=== PATIENT | female | born 1990 | race Caucasian/White ===

== ENCOUNTER 2016-02-14 00:28 | Emergency (ER) | payer SELFPAY ==
--- NOTE | 2016-02-14 02:54 | ED ORDER SUMMARY ---
..... Patient: GEOVANI SIMON OrderSheet [facility] VisitID: [id number] [address] [place] [address] 25y, F Registration Date/Time: 02/14/2016 ORDER SHEET Weight: 58.9 kg Allergies: No Known Drug Allergy GENERAL ORDERS: UA-Culture if indicated Urgent (00:41 02/14/2016 Kaylene CALVERT) (Ack 0:46 OSnell) Urine Urgent (00:41 02/14/2016 Kaylene CALVERT) (Ack 0:46 OSnell) CBC w Diff Urgent (00:43 02/14/2016 Kaylene CALVERT) (Ack 0:46 OSnell) (2:15 EInderbitzen R.N.) CMP Urgent (00:43 02/14/2016 Kaylene CALVERT) (Ack 0:46 OSnell) (2:15 EInderbitzen R.N.) Lactate, Serum Urgent (00:43 02/14/2016 Kaylene CALVERT) (Ack 0:46 OSnell) (2:15 EInderbitzen R.N.) Chest 2V Urgent (00:57 02/14/2016 Kaylene CALVERT) (Ack 0:59 OSnell) (1:49 RFay) Rapid Influenza Screen (Nasal Pharyngeal) (swab) Urgent (01:55 02/14/2016 Kaylene CALVERT) (2:15 EInderbitzen R.N.) MEDICATION ORDERS: Acetaminophen PO 1,000 mg (NOW) (00:41 02/14/2016 Kaylene CALVERT) (1:02 EInderbitzen R.N.) Levofloxacin PO 750 mg (NOW) (02:52 02/14/2016 Kaylene CALVERT) (2:59 EInderbitzen R.N.) IV FLUIDS: IV NS : initial bolus 1000 mL (1000 mL/hr), then none - (NOW) (00:41 02/14/2016 Kaylene CALVERT) (1:02 EInderbitzen R.N.) ORDER SHEET NOTES: [Electronically signed by Nancy Chun R.N. (03:05 02/14/2016)] [Electronically signed by Brittani Sparks MD (06:26 02/18/2016)] [Electronically locked/signed by Nancy Chun R.N. (03:05 02/14/2016)]
--- NOTE | 2016-02-14 02:54 | ED NURSING NOTES ---
Clinical Report - Nurses [place] [address] [place] [address] 02/14/2016 0:31 Patient: GEOVANI SIMON TRIAGE Triage time 00:35 Feb 14 2016. Acuity: LEVEL 3. Chief Complaint: ABDOMINAL PAIN and (RIGHT FLANK). 00:37 02/14/16. SEPSIS SCREEN: Sepsis Screen: positive. Infection suspected/documented. Temperature greater than 38.3 degrees C (101 degrees F) and heart rate greater than 90. Physician notified. --00:39 Nancy Chun R.N. 00:37 02/14/16. BP: 117/69. HR: 119. RR: 16. O2 saturation: 100%. Temp: 102.3 F. Pain level now 8/10. --00:39 Nancy Chun R.N. Weight: 58.9 kg. Height/Length: 63 inches. BMI: 23. --00:35 Nancy Chun R.N. Medications None. --00:35 Nancy Chun R.N. Allergies No Known Drug Allergy. --00:35 Nancy Chun R.N. Medication/allergy information source: the patient. --00:39 Nancy Chun R.N. History Arrived by private vehicle. Historian: patient. Accompanied by friend. Onset. (30 hours ago). No nausea, vomiting, diarrhea, constipation or abdominal pain. No fever. 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 PAST MEDICAL HX: Last normal menstrual period- EARLY JANUARY. Denies current . SOCIAL HX: Heavy tobacco smoker (cigarette)- 1 pack per day. History of drug use: marijuana. No alcohol use. No recent travel. No infectious disease exposure. No known contact with a sick individual. ABUSE ASSESSMENT: No report of abuse. SELF HARM ASSESSMENT: A self harm assessment was performed. The patient answered "no" to the question "Have you recently felt down, depressed, or hopeless?", "Have you noticed less interest or pleasure in doing things?", "Do you have thoughts of harming or killing yourself?", "Are you here because you tried to hurt yourself?", "Have you ever tried to hurt yourself before today?", "Have you recently had thoughts about harming or killing others?" and "Do you have any dangerous items in your possession?". NUTRITIONAL RISK ASSESSMENT: The nutritional risk assessment revealed no deficiencies. FUNCTIONAL ASSESSMENT: Functional assessment: no impairments noted. LEARNING NEEDS ASSESSMENT: The learning needs assessment revealed no barriers. SKIN INTEGRITY ASSESSMENT: Skin integrity risk assessment completed. No skin integrity risk identified. --00:39 Nancy Chun R.N. PROBLEMS: no known problems. ADDITIONAL SURGERIES: no known surgeries. Interventions ID band on patient. --00:39 Nancy Chun R.N. PHYSICAL ASSESSMENT 01:00 02/14/16. GENERAL / NEURO / PSYCH: Alert. Oriented X 4. HEENT: Mucous membranes are pink. RESPIRATORY: Respirations not labored. Breath sounds within normal limits. ( pain lower posterior right chest). CVS: Capillary refill less than 2 seconds. GI / : Abdomen nontender. Bowel sounds within normal limits. No rebound tenderness, abdominal distention, guarding or mass present in the abdominal region. No nausea noted. No emesis noted. SKIN: Skin is pale. Skin is warm. --01:00 Nancy Chun R.N. NURSING PROGRESS NOTES 00:37 02/14/16. The initial plan of care for this patient includes an assessment with efforts to address the presence of pain; impairment of the respiratory, gastrointestinal and genitourinary system. This plan of care was discussed with the patient. Patient gowned. Reassurance given. Two patient identifiers checked. Call light placed in reach. Side rails up x 1. Bed placed in lowest position. Brakes of bed on. Patient ready for evaluation. --01:00 Nancy Chun R.N. 00:48 02/14/2016 Acetaminophen (APAP) PO Tablets 1000 mg given. Allergies verified and confirmed 5 rights. --01:02 Nancy Chun R.N. 00:53 02/14/2016 Site #1 started via IV in the right forearm with an 20g angiocath, with aseptic technique and good blood return; one attempt. Blood drawn: rainbow set. Labeled in the presence of the patient and sent to the lab. Saline lock flushed with 10 mL saline (lactic acid drawn and placed on ice). --01:01 Nancy Chun R.N. 01:00 02/14/2016 Started bag #1 1000 mL IV Fluids IV NS (Saline); at 1000 mL/hr over 1 hour(s) via site #1 --01:02 Nancy Chun R.N. 01:50 02/14/16. Patient ID band checked for patient name and birthdate: patient confirmed. Flu swab obtained by RN via nasal swab. Labeled in the presence of the patient. --02:12 Nancy Chun R.N. 02:15 02/14/2016 IV Fluids IV NS Discontinued: bag #1 completed. Total amount infused: 1000 mL. IV patency established. IV site checked: no pain, redness, or swelling. IV flushed thoroughly. --02:15 Nancy Chun R.N. 02:24 02/14/16. Patient ID band checked for patient name and birthdate: patient confirmed. Instructions provided to collect clean catch urine and patient verbalized understanding. Clean catch urine collected with return of michell-colored clear urine; odor is normal; sample sent to lab for urinalysis. Specimen labeled in the presence of the patient. --02:24 Nancy Chun R.N. 02:55 02/14/2016 Levofloxacin PO Tablets 750 mg given. Allergies verified and confirmed 5 rights. --02:59 Nancy Chnu R.N. DISPOSITION / DISCHARGE 02:59 02/14/2016 Site #1 removed upon discharge. Catheter intact. Bandaid applied. --02:59 Nancy Chun R.N. 02:59 02/14/16. BP: 94/50. HR: 100. RR: 16. O2 saturation: 100%. Temp: 98.5 F. Pain level now 5/10. --02:59 Nancy Chun R.N. 03:04 02/14/16. Condition at departure: improved and stable. The goals identified in the patient's plan of care were met. No learning barriers present. Discharge instructions provided and reviewed with the patient. Reviewed medication(s) side effects, precautions, dosing and course information. Prescription(s) given to the patient. Reviewed referral to a primary care physician for followup. Summary of care provided to patient. Patient verbalized understanding. Written instructions provided in Croatian. The patient was discharged home and accompanied by embedded software manager. She left the Emergency Department ambulatory and via private vehicle. Oracle Architect driving. FALL RISK ASSESSMENT: Fall risk assessment completed. No fall risk identified. --03:04 Nancy Chun R.N. Departure time: 03:04 Feb 14 2016. --03:04 Nancy Chun R.N. Locked/Released at 02/14/2016 3:05 by Nancy Chun R.N.
--- NOTE | 2016-02-14 02:54 | ED CLINICAL REPORT ---
Clinical Report - Physicians/Mid Levels [facility] [address] [place] [address] 02/14/2016 0:31 Patient: GEOVANI SIMON Time Seen: 00:40. Arrived- By private vehicle. Historian- patient. HISTORY OF PRESENT ILLNESS Chief Complaint: FLANK PAIN. At its maximum, severity described as moderate. When seen in the E.D., severity described as moderate. Modifying factors. Not worsened by anything. Not relieved by anything. It is described as "pain" and it is described as located in the right flank. This started yesterday and is still present. No nausea, loss of appetite, vomiting or diarrhea. Similar symptoms previously: None. Recent medical care: Not recently seen/assessed. REVIEW OF SYSTEMS No constipation, black stools, hematemesis, difficulty with urination or pain with urination. No urinary frequency, bloody stools, headache, sore throat or blurred vision. No chest pain, difficulty breathing, joint pain or skin rash. Denies current . The patient has had fever, chills, a cough and back pain. All systems otherwise negative, except as recorded above. PAST HISTORY Problems: no known problems. Additional Surgeries: no known surgeries. Medications: None. Allergies: No Known Drug Allergy. SOCIAL HISTORY Smoker- current status unknown. History of drug use: marijuana. No alcohol use. ADDITIONAL NOTES The nursing notes have been reviewed. PHYSICAL EXAM Vital Signs: 02/14/2016 00:37 BP: 117/69. HR: 119. RR: 16. O2 saturation: 100%. Temp: 102.3 F. Have been reviewed. Appearance: Alert. Oriented X3. No acute distress. (Pt appears moderately uncomfortable.). Eyes: Pupils equal, round and reactive to light. Eyes normal inspection. ENT: Nose normal. Neck: Normal inspection. CVS: Normal heart rate and rhythm. Heart sounds normal. Pulses normal. Respiratory: No respiratory distress. Breath sounds normal. Abdomen: Soft. Moderate tenderness (R flank). Back: Moderate CVA tenderness on the right. Skin: Skin warm and dry. Normal skin color. No rash. Normal skin turgor. Extremities: Extremities exhibit normal ROM. No lower extremity edema. Neuro: Oriented X 3. No motor deficit. No sensory deficit. LABS, X-RAYS, AND EKG Chest X-ray: No acute disease. Normal lung markings present. Normal heart size. Mediastinum normal. Great vessels normal. Soft tissues normal. No infiltrate. No fracture. No bony lesion present. Views: PA and lateral. Technique: good. The X-rays were independently viewed by me and interpreted contemporaneously by me. Prior films were not available for comparison. Laboratory Tests: UA-Culture if indicated: (CHRIS: 02/14/2016 02:15) ( [facility] [place] 02/14/2016 02:44) Final results Test Result Flag Units (Reference) URINE COLOR YELLOW URINE APPEARANCE SLIGHTLY HAZY URINE GLUCOSE NEGATIVE (NEGATIVE) URINE BILIRUBIN NEGATIVE (NEGATIVE) URINE KETONE NEGATIVE (NEGATIVE) URINE SPECIFIC GRAVITY 1.010 (1.010-1.030) URINE PH 6.5 (5.0-8.0) URINE PROTEIN TRACE (NEGATIVE) URINE UROBILINOGEN 1.0 EU/dL (0.2-1.0) URINE NITRITE POSITIVE (NEGATIVE) URINE BLOOD 1+ (NEGATIVE) URINE LEUK ESTERASE POSITIVE (NEGATIVE) URINE RBC 0-1 rbc/hpf (0-1) URINE WBC 15-25 wbc/hpf (0-1) URINE EPITHELIAL CELLS 1-3 EPI/hpf (0-5) URINE BACTERIA MODERATE (2+ TO 3+) (NONE SEEN) URINE COMMENT CULTURE INDICATED URINE CULTURES ARE SET-UP BASED ON THE FOLLOWING CRITERIA:POSITIVE NITRITEPOSITIVE LEUKOCYTE ESTERASEGREATER THAN 10 WHITE BLOOD CELLSMODERATE (2+) OR GREATER BACTERIA Urine: (CHRIS: 02/14/2016 02:15) ( [facility] [place] 02/14/2016 02:30) Final results Test Result Flag Units (Reference) URINE NEGATIVE CBC w Diff: (CHRIS: 02/14/2016 00:53) ( [facility] [place] [place] 02/14/2016 01:56) Final results Test Result Flag Units (Reference) WHITE BLOOD COUNT 18.5 H K/uL (4.5-11.5) RED BLOOD COUNT 4.33 M/uL (4.00-5.20) HEMOGLOBIN 13.1 gm/dL (12.0-16.0) HEMATOCRIT 39.4 % (36.0-46.0) MEAN CELL VOLUME 91 fL (80-100) MEAN CORPUSCULAR HGB 30 pg (26-34) MEAN CORPUSCULAR HGB CONC 33 g/dL (31-37) RED CELL DISTRIBUTION WIDTH 11.9 % (11.6-14.8) PLATELET COUNT 202 K/uL (150-400) POLY % 83 H % (50-75) BAND % 5 % (0-8) LYMPH 6 L % (25-40) MONO 6 % (3-14) EOSINOPHIL % 0 % (0-4) BASOPHIL % 0 % (0-2) METAMYELOCYTE % 0 % (0-1) MYELOCYTE 0 % (0-1) OTHER CELL TYPE 0 Lactate, Serum: (CHRIS: 02/14/2016 00:53) ( [facility] [place] [place] 02/14/2016 01:31) Final results Test Result Flag Units (Reference) LACTIC ACID 1.6 mmol/L (0.4-2.0) CMP: (CHRIS: 02/14/2016 00:53) ( [facility] [place] [place] 02/14/2016 01:30) Final results Test Result Flag Units (Reference) GLUCOSE 127 H mg/dL (70-110) BUN 10 mg/dL (7-18) CREATININE 0.9 mg/dL (0.6-1.3) Estimated GFR >60 mL/min Estimated GFR- >60 mL/min Note: Persistent reduction over 3 months in eGFR<60 mL/min/1.73 m2 defines CKD. Patients with eGFR values>=60 mL/min/1.73 m2 may also have CKD if evidence ofpersistent proteinuria. Additional information may be foundat www.kidney.org. SODIUM 138 mmol/L (136-145) POTASSIUM 3.7 mmol/L (3.5-5.1) CHLORIDE 103 mmol/L (98-107) CARBON DIOXIDE 25 mmol/L (21-32) CALCIUM 8.6 mg/dL (8.5-10.1) TOTAL PROTEIN 7.4 g/dL (6.4-8.2) ALBUMIN 3.3 g/dL (3.3-5.0) BILIRUBIN, TOTAL 0.6 mg/dL (0.0-1.0) ALKALINE PHOSPHATASE 81 U/L (46-116) AST (SGOT) 15 U/L (15-37) ALT (SGPT) 17 U/L (12-78) Rapid Influenza Screen: (CHRIS: 02/14/2016 02:00) ( MsgRcvd 02/14/2016 02:25) Final results SPECIMEN DESCRIPTION: SWAB Test Result Flag Units (Reference) RAPID INFLUENZA SCREEN DATE: 02/14/16 INFLUENZA A: NEGATIVE SCREEN FOR INFLUENZA A INFLUENZA B: NEGATIVE SCREEN FOR INFLUENZA B . Pulse Oximetry: 02/14/2016 00:37 O2 saturation: 100%. (FIO2 - room air). Interpretation: normal. PROGRESS AND PROCEDURES Course of Care: PT was given Tylenol and IV fluids, and worked up for her sx, with various infectious sources in mind. She was found to have pyelonephritis, and was treated with Levaquin for this. No evidence of sepsis at this time. Patient counseled in person regarding the patient's stable condition, test results, diagnosis and need for follow-up. Concerns were addressed. Old medical records reviewed. Disposition: Discharged. Condition: stable and improved. CLINICAL IMPRESSION Acute pyelonephritis INSTRUCTIONS Drink plenty of fluids. Warnings: GENERAL WARNINGS: Return or contact your physician immediately if your condition worsens or changes unexpectedly, if not improving as expected, or if other problems arise. Prescription Medications: Hydrocodone/APAP 5mg / 325mg: take 1-2 orally every 6 hours as needed for pain. Dispense fifteen (15). No refill. Zofran (orally disintegrating tablets) 4 mg: take 1-2 orally every 6 hours as needed for nausea. Dispense ten (10). No refill. Substitution is permissible. Levaquin 500 mg: take 1 tab orally every day for 14 days. No refills. Substitution is permissible. Follow-up: Follow up with your doctor in seven days if not better. Understanding of the discharge instructions verbalized by patient. (Electronically signed by Brittani Sparks MD 02/18/2016 6:26)
--- NOTE | 2016-02-14 02:54 | ED ORDER SUMMARY ---
..... Patient: GEOVANI SIMON OrderSheet [facility] VisitID: [id number] [address] [place] [address] 25y, F Registration Date/Time: 02/14/2016 ORDER SHEET Weight: 58.9 kg Allergies: No Known Drug Allergy GENERAL ORDERS: UA-Culture if indicated Urgent (00:41 02/14/2016 Kaylene CALVERT) (Ack 0:46 OSnell) Urine Urgent (00:41 02/14/2016 Kaylene CALVERT) (Ack 0:46 OSnell) CBC w Diff Urgent (00:43 02/14/2016 Kaylene CALVERT) (Ack 0:46 OSnell) (2:15 EInderbitzen R.N.) CMP Urgent (00:43 02/14/2016 Kaylnee CALVERT) (Ack 0:46 OSnell) (2:15 EInderbitzen R.N.) Lactate, Serum Urgent (00:43 02/14/2016 Kaylene CALVERT) (Ack 0:46 OSnell) (2:15 EInderbitzen R.N.) Chest 2V Urgent (00:57 02/14/2016 Kaylene CALVERT) (Ack 0:59 OSnell) (1:49 RFay) Rapid Influenza Screen (Nasal Pharyngeal) (swab) Urgent (01:55 02/14/2016 Kaylene CALVERT) (2:15 EInderbitzen R.N.) MEDICATION ORDERS: Acetaminophen PO 1,000 mg (NOW) (00:41 02/14/2016 Kaylene CALVERT) (1:02 EInderbitzen R.N.) Levofloxacin PO 750 mg (NOW) (02:52 02/14/2016 Kaylene CALVERT) (2:59 EInderbitzen R.N.) IV FLUIDS: IV NS : initial bolus 1000 mL (1000 mL/hr), then none - (NOW) (00:41 02/14/2016 Kaylene CALVERT) (1:02 EInderbitzen R.N.) ORDER SHEET NOTES: [Electronically signed by Nancy Chun R.N. (03:05 02/14/2016)] [Electronically signed by Brittani Sparks MD (06:26 02/18/2016)] [Electronically locked/signed by Nancy Chun R.N. (03:05 02/14/2016)]
--- NOTE | 2016-02-14 02:54 | ED NURSING NOTES ---
Clinical Report - Nurses [place] [address] [place] [address] 02/14/2016 0:31 Patient: GEOVANI SIMON TRIAGE Triage time 00:35 Feb 14 2016. Acuity: LEVEL 3. Chief Complaint: ABDOMINAL PAIN and (RIGHT FLANK). 00:37 02/14/16. SEPSIS SCREEN: Sepsis Screen: positive. Infection suspected/documented. Temperature greater than 38.3 degrees C (101 degrees F) and heart rate greater than 90. Physician notified. --00:39 Nancy Chun R.N. 00:37 02/14/16. BP: 117/69. HR: 119. RR: 16. O2 saturation: 100%. Temp: 102.3 F. Pain level now 8/10. --00:39 Nancy Chun R.N. Weight: 58.9 kg. Height/Length: 63 inches. BMI: 23. --00:35 Nancy Chun R.N. Medications None. --00:35 Nancy Chun R.N. Allergies No Known Drug Allergy. --00:35 Nancy Chun R.N. Medication/allergy information source: the patient. --00:39 Nancy Chun R.N. History Arrived by private vehicle. Historian: patient. Accompanied by friend. Onset. (30 hours ago). No nausea, vomiting, diarrhea, constipation or abdominal pain. No fever. 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 PAST MEDICAL HX: Last normal menstrual period- EARLY JANUARY. Denies current . SOCIAL HX: Heavy tobacco smoker (cigarette)- 1 pack per day. History of drug use: marijuana. No alcohol use. No recent travel. No infectious disease exposure. No known contact with a sick individual. ABUSE ASSESSMENT: No report of abuse. SELF HARM ASSESSMENT: A self harm assessment was performed. The patient answered "no" to the question "Have you recently felt down, depressed, or hopeless?", "Have you noticed less interest or pleasure in doing things?", "Do you have thoughts of harming or killing yourself?", "Are you here because you tried to hurt yourself?", "Have you ever tried to hurt yourself before today?", "Have you recently had thoughts about harming or killing others?" and "Do you have any dangerous items in your possession?". NUTRITIONAL RISK ASSESSMENT: The nutritional risk assessment revealed no deficiencies. FUNCTIONAL ASSESSMENT: Functional assessment: no impairments noted. LEARNING NEEDS ASSESSMENT: The learning needs assessment revealed no barriers. SKIN INTEGRITY ASSESSMENT: Skin integrity risk assessment completed. No skin integrity risk identified. --00:39 Nancy Chun R.N. PROBLEMS: no known problems. ADDITIONAL SURGERIES: no known surgeries. Interventions ID band on patient. --00:39 Nancy Chun R.N. PHYSICAL ASSESSMENT 01:00 02/14/16. GENERAL / NEURO / PSYCH: Alert. Oriented X 4. HEENT: Mucous membranes are pink. RESPIRATORY: Respirations not labored. Breath sounds within normal limits. ( pain lower posterior right chest). CVS: Capillary refill less than 2 seconds. GI / : Abdomen nontender. Bowel sounds within normal limits. No rebound tenderness, abdominal distention, guarding or mass present in the abdominal region. No nausea noted. No emesis noted. SKIN: Skin is pale. Skin is warm. --01:00 Nancy Chun R.N. NURSING PROGRESS NOTES 00:37 02/14/16. The initial plan of care for this patient includes an assessment with efforts to address the presence of pain; impairment of the respiratory, gastrointestinal and genitourinary system. This plan of care was discussed with the patient. Patient gowned. Reassurance given. Two patient identifiers checked. Call light placed in reach. Side rails up x 1. Bed placed in lowest position. Brakes of bed on. Patient ready for evaluation. --01:00 Nancy Chun R.N. 00:48 02/14/2016 Acetaminophen (APAP) PO Tablets 1000 mg given. Allergies verified and confirmed 5 rights. --01:02 Nancy Chun R.N. 00:53 02/14/2016 Site #1 started via IV in the right forearm with an 20g angiocath, with aseptic technique and good blood return; one attempt. Blood drawn: rainbow set. Labeled in the presence of the patient and sent to the lab. Saline lock flushed with 10 mL saline (lactic acid drawn and placed on ice). --01:01 Nancy Chun R.N. 01:00 02/14/2016 Started bag #1 1000 mL IV Fluids IV NS (Saline); at 1000 mL/hr over 1 hour(s) via site #1 --01:02 Nancy Chun R.N. 01:50 02/14/16. Patient ID band checked for patient name and birthdate: patient confirmed. Flu swab obtained by RN via nasal swab. Labeled in the presence of the patient. --02:12 Nancy Chun R.N. 02:15 02/14/2016 IV Fluids IV NS Discontinued: bag #1 completed. Total amount infused: 1000 mL. IV patency established. IV site checked: no pain, redness, or swelling. IV flushed thoroughly. --02:15 Nancy Chun R.N. 02:24 02/14/16. Patient ID band checked for patient name and birthdate: patient confirmed. Instructions provided to collect clean catch urine and patient verbalized understanding. Clean catch urine collected with return of michell-colored clear urine; odor is normal; sample sent to lab for urinalysis. Specimen labeled in the presence of the patient. --02:24 Nancy Chun R.N. 02:55 02/14/2016 Levofloxacin PO Tablets 750 mg given. Allergies verified and confirmed 5 rights. --02:59 Nancy Chun R.N. DISPOSITION / DISCHARGE 02:59 02/14/2016 Site #1 removed upon discharge. Catheter intact. Bandaid applied. --02:59 Nancy Chun R.N. 02:59 02/14/16. BP: 94/50. HR: 100. RR: 16. O2 saturation: 100%. Temp: 98.5 F. Pain level now 5/10. --02:59 Nancy Chun R.N. 03:04 02/14/16. Condition at departure: improved and stable. The goals identified in the patient's plan of care were met. No learning barriers present. Discharge instructions provided and reviewed with the patient. Reviewed medication(s) side effects, precautions, dosing and course information. Prescription(s) given to the patient. Reviewed referral to a primary care physician for followup. Summary of care provided to patient. Patient verbalized understanding. Written instructions provided in Yakut. The patient was discharged home and accompanied by utilization management manager. She left the Emergency Department ambulatory and via private vehicle. Sewing Machine Tester driving. FALL RISK ASSESSMENT: Fall risk assessment completed. No fall risk identified. --03:04 Nancy Chun R.N. Departure time: 03:04 Feb 14 2016. --03:04 Nancy Chun R.N. Locked/Released at 02/14/2016 3:05 by Nancy Chun R.N.
--- NOTE | 2016-02-14 06:19 | DIAGNOSTIC IMAGING REPORT ---
PROCEDURE: XR CHEST 2 VIEW INDICATION: FEVER TECHNIQUE: PA and lateral views. COMPARISON: None. FINDINGS: Minor scarring at the right lateral lung base. Lungs are otherwise clear. Heart and mediastinum are normal. Thorax is normal. IMPRESSION: 1. Minor scarring at the right lung base. 2. Otherwise negative chest.
--- NOTE | 2016-02-18 06:26 | ED MED RECONCILIATION SUMMARY ---
Patient: GEOVANI SIMON Medication Reconciliation Report [facility] VisitID: [id number] [address] [place] [address] 25y, F Registration Date/Time: 02/14/2016 Weight: 58.9 kg Height/Length: 63 in. BMI: 23.0 ALLERGIES: No Known Drug Allergy The patient's Home Medications are listed below: NONE. The source(s) of the original Home Medication information: patient The following Medications were given to the patient in the Emergency Department: IV NS IV Fluids bolus 0, then 1000 mL/hr, administered: 02/14/2016 1:00:00 AM Acetaminophen [PO] PO 1000 mg, administered: 02/14/2016 12:48:00 AM Levofloxacin [PO] PO 750 mg, administered: 02/14/2016 2:55:00 AM The following Medications were prescribed to the patient: Hydrocodone/APAP 5mg / 325mg: take 1-2 orally every 6 hours as needed for pain. Dispense fifteen (15). No refill. -- Brittani Sparks MD Zofran (orally disintegrating tablets) 4 mg: take 1-2 orally every 6 hours as needed for nausea. Dispense ten (10). No refill. Substitution is permissible. -- Brittani Sparks MD Levaquin 500 mg: take 1 tab orally every day for 14 days. No refills. Substitution is permissible. -- Brittani Sparks MD
--- NOTE | 2016-02-18 06:26 | ED MAR SUMMARY ---
..... Medication Administration Record [facility] [address] [place] [address] Patient: GEOVANI SIMON Visit ID: [id number] 25y, F Weight: 58.9 kg Height/Length: 63 in BMI: 23 ALLERGIES: No Known Drug Allergy Given 00:48 02/14/2016 Nancy Chun R.N. Medication Administered: ACETAMINOPHEN [PO] (APAP), Dose: 1000 mg Tablets PO. Medication Ordered: Acetaminophen PO 1,000 mg (NOW). Start 01:00 02/14/2016 Nancy Chun R.N., Stop 02:15 02/14/2016 Nancy Chun R.N. Medication Administered: IV NS (SALINE), Dose: IV Fluids over 1 hour(s), Rate: 1000 mL/hr, Dispensed: 1000 mL bag, Site: #1 right forearm. Medication Ordered: IV NS : initial bolus 1000 mL (1000 mL/hr), then none - (NOW). Given 02:55 02/14/2016 Nancy Chun R.N. Medication Administered: LEVOFLOXACIN [PO], Dose: 750 mg Tablets PO. Medication Ordered: Levofloxacin PO 750 mg (NOW).
--- NOTE | 2016-02-18 06:26 | ED MED RECONCILIATION SUMMARY ---
Patient: GEOVANI SIMON Medication Reconciliation Report [facility] VisitID: [id number] [address] [place] [address] 25y, F Registration Date/Time: 02/14/2016 Weight: 58.9 kg Height/Length: 63 in. BMI: 23.0 ALLERGIES: No Known Drug Allergy The patient's Home Medications are listed below: NONE. The source(s) of the original Home Medication information: patient The following Medications were given to the patient in the Emergency Department: IV NS IV Fluids bolus 0, then 1000 mL/hr, administered: 02/14/2016 1:00:00 AM Acetaminophen [PO] PO 1000 mg, administered: 02/14/2016 12:48:00 AM Levofloxacin [PO] PO 750 mg, administered: 02/14/2016 2:55:00 AM The following Medications were prescribed to the patient: Hydrocodone/APAP 5mg / 325mg: take 1-2 orally every 6 hours as needed for pain. Dispense fifteen (15). No refill. -- Brittani Sparks MD Zofran (orally disintegrating tablets) 4 mg: take 1-2 orally every 6 hours as needed for nausea. Dispense ten (10). No refill. Substitution is permissible. -- Brittani Sparks MD Levaquin 500 mg: take 1 tab orally every day for 14 days. No refills. Substitution is permissible. -- Brittani Sparks MD
--- NOTE | 2016-02-18 06:26 | ED DISCHARGE INSTRUCTIONS ---
Patient: GEOVANI SIMON General Instructions [facility] VisitID: [id number] [place] [address] 25y, F Registration Date/Time: 02/14/2016 Acute pyelonephritis INSTRUCTIONS Drink plenty of fluids. Warnings: GENERAL WARNINGS: Return or contact your physician immediately if your condition worsens or changes unexpectedly, if not improving as expected, or if other problems arise. Prescription Medications: Hydrocodone/APAP 5mg / 325mg: take 1-2 orally every 6 hours as needed for pain. Dispense fifteen (15). No refill. Zofran (orally disintegrating tablets) 4 mg: take 1-2 orally every 6 hours as needed for nausea. Dispense ten (10). No refill. Substitution is permissible. Levaquin 500 mg: take 1 tab orally every day for 14 days. No refills. Substitution is permissible. Follow-up: Follow up with your doctor in seven days if not better. Understanding of the discharge instructions verbalized by patient. ADDITIONAL INFORMATION Kidney Infection [Adult, Female] An infection of the kidney is also called "pyelonephritis". It usually starts as a bladder infection ("cystitis") which spreads to the kidneys. Pyelonephritis is more serious than a bladder infection. It can cause severe illness if not treated properly. The usual symptoms include an aching pain in the back, side or lower abdomen. Other symptoms may include fever, chills, nausea, vomiting, an urge to urinate and a burning sensation when passing urine. Home Care: Stay home from work or school. Rest in bed until your fever breaks and you are feeling better. Drink lots of fluid (at least 6-8 glasses a day, unless you must restrict fluids for other medical reasons). This will force the medicine into your urinary system and flush the bacteria out of your body. Avoid sexual intercourse until you have finished all of your medicine and your symptoms have gone away. Avoid caffeine, alcohol and spicy foods which may irritate the kidney and bladder. You may use acetaminophen (Tylenol) or ibuprofen (Motrin, Advil) to control pain, unless another pain medicine was prescribed. [NOTE: If you have chronic liver or kidney disease or ever had a stomach ulcer or GI bleeding, talk with your doctor before using these medicines.] Follow Up with your doctor or as advised by our staff for a repeat urine test in 10 days. This will ensure that your infection is fully cleared. [NOTE: If you had an X-ray or CT scan, it will be reviewed by a specialist. You will be notified of any new findings that may affect your care.] Get Prompt Medical Attention if any of the following occur: Fever over 100.4F (38.0C) after 48 hours of treatment No improvement by the third day of treatment Increasing back or abdominal pain Repeated vomiting or inability to take oral medicine Weakness, dizziness or fainting You have been given the following additional information: Pyelonephritis, Female (Adult) (Electronically signed by Brittani Sparks MD 02/18/2016 6:26)
--- NOTE | 2016-02-18 06:26 | ED MAR SUMMARY ---
..... Medication Administration Record [facility] [address] [place] [address] Patient: GEOVANI SIMON Visit ID: [id number] 25y, F Weight: 58.9 kg Height/Length: 63 in BMI: 23 ALLERGIES: No Known Drug Allergy Given 00:48 02/14/2016 Nancy Chun R.N. Medication Administered: ACETAMINOPHEN [PO] (APAP), Dose: 1000 mg Tablets PO. Medication Ordered: Acetaminophen PO 1,000 mg (NOW). Start 01:00 02/14/2016 Nancy Chun R.N., Stop 02:15 02/14/2016 Nancy Chun R.N. Medication Administered: IV NS (SALINE), Dose: IV Fluids over 1 hour(s), Rate: 1000 mL/hr, Dispensed: 1000 mL bag, Site: #1 right forearm. Medication Ordered: IV NS : initial bolus 1000 mL (1000 mL/hr), then none - (NOW). Given 02:55 02/14/2016 Nancy Chun R.N. Medication Administered: LEVOFLOXACIN [PO], Dose: 750 mg Tablets PO. Medication Ordered: Levofloxacin PO 750 mg (NOW).
== END 2016-02-14 03:04 | disposition home or self-care (01) ==
LOC: ED SRH 00:28
DX: N10 Acute pyelonephritis (principal)
CPT/HCPCS: 90004; 90100; 90148; 90469; 91400; 91643; 92031; 93070; 95059